=== PATIENT | female | born 1950 | race African-American/Black ===

== ENCOUNTER 2020-08-02 06:16 | Emergency (ER) | payer MEDICARE, MEDICAID ==
[2020-08-02 07:05] LABS: #Basophils 0.1 10x3/uL (0.0-0.2); #Monocytes 1.7 10x3/uL (0.0-1.1); #Neutrophils 17.1 10x3/uL (1.5-8.4); %Basophils 0.4 % (0.0-2.0); %Lymphocytes 7.3 % (18.0-47.0); %Monocytes 8.2 % (0.0-10.0); %Neutrophils 83.2 % (40.0-75.0); Hemoglobin 15.7 g/dL (12.0-15.5); Mean Corpuscular HGB CONC 35.6 g/dL (32.0-36.0); Mean Corpuscular Hemoglobin 32.9 pg (27.0-33.0); Mean Corpuscular Volume 92.5 fl (81.6-98.3); Platelet Count 9 10x3/uL (150-450); RBC Distribution Width 13.6 % (11.5-14.5); Red Blood Cell (RBC) Count 4.77 10x6/uL (3.90-5.03); White Blood Cell (WBC) Count 20.5 10x3/uL (3.5-10.5)
[2020-08-02 07:11] LABS: Acetaminophen Less than 6.0 mcg/mL (10.0-30.0); Alcohol Less than 10 mg/dL (Less than 10); Salicylate Less than 8.0 mg/dL (15.0-30.0)
[2020-08-02 07:17] LABS: Albumin 3.3 g/dL (3.4-4.8); Anion Gap 25 mmol/L (10-20); BUN (Urea Nitrogen) 56 mg/dL (9.8-20.1); Bilirubin, Total 2.1 mg/dL (0.2-1.2); Calc. Creatinine Clearance 0 mL/min (70-130); Calcium 7.6 mg/dL (7.8-10.44); Carbon Dioxide 14 mmol/L (23-31); Chloride 103 mmol/L (98-107); Globulin 2.7 g/dL (2.4-3.5); Glucose 196 mg/dL (80-115); Sodium 139 mmol/L (136-145)
[2020-08-02 07:18] LABS: ALT (SGPT) 31 U/L (8-55); AST (SGOT) 26 U/L (5-34); Alkaline Phosphatase 78 U/L (40-110)
[2020-08-02 07:21] LABS: Bilirubin 3+ (Negative); Blood, Urine 250 (Negative); Clarity Cloudy (Clear); Glucose, Urine (Dipstick) 100 mg/dL (Negative); Ketone, Urine 5 mg/dL (Negative); Leukocyte 25 (Negative); Nitrite Positive (Negative); Protein, Urine (Dipstick) 500 mg/dl (Neg-Trace)
[2020-08-02 07:31] LABS: Amphetamine Not Detected (NotDetected); Barbiturates Screen Not Detected (NotDetected); Benzodiazepine Screen Not Detected (NotDetected); Cocaine Metabolite Screen Not Detected (NotDetected); Methadone Not Detected (NotDetected); Methamphetamine Not Detected (NotDetected); Opiate Screen Detected (NotDetected); Oxycodone Screen Not Detected (NotDetected); Phencyclidine (PCP) Not Detected (NotDetected); THC/Cannabinoid Screen Detected (NotDetected); Tricyclic Screen Not Detected (NotDetected)
[2020-08-02 07:35] LABS: RBC/HPF Greater than 50 HPF (0-3); Squamous Epithelial 0-3 HPF (0-3); WBC/HPF 0-3 HPF (0-3)
[2020-08-02 07:37] LABS: Bacteria/HPF 3+ HPF (None Seen)
[2020-08-02 07:40] LABS: Potassium 2.7 mmol/L (3.5-5.1)
[2020-08-02 07:42] LABS: Platelet Morphology Comment Appears Decreased; RBC Morphology Normal
[2020-08-02 07:43] LABS: Reflex for Review?? YES
[2020-08-02] MEDS ORDERED: Vancomycin HCl 500 MG VIAL ONE (08:18)
[2020-08-02] MEDS ORDERED: Magnesium 2 GM/50 ML BAG (IN WATER) ONE (08:18)
[2020-08-02] MEDS ORDERED: Cefepime 2 GM VIAL ONE (09:04)
[2020-08-02] MEDS ORDERED: NS 0.9% w/ 40 MEQ KCL 1,000 ML IV ONE (09:04)
[2020-08-02] MEDS ORDERED: Ondansetron PF 4 MG/2 ML Vial ONE (09:22)
[2020-08-02] MEDS ORDERED: Amlodipine 5 MG TAB ONE (11:32)
[2020-08-02] MEDS ORDERED: Lisinopril 10 MG TAB ONE (11:32)
[2020-08-02] MEDS ORDERED: hydrALAZINE 25 MG TAB ONE (11:33)
[2020-08-02 14:03] LABS: Anion Gap 18 mmol/L (10-20); Globulin 2.9 g/dL (2.4-3.5)
[2020-08-02 14:11] LABS: ALT (SGPT) 30 U/L (8-55); AST (SGOT) 34 U/L (5-34); Albumin 3.5 g/dL (3.4-4.8); Alkaline Phosphatase 81 U/L (40-110); BUN (Urea Nitrogen) 53 mg/dL (9.8-20.1); Bilirubin, Total 2.6 mg/dL (0.2-1.2); Calc. Creatinine Clearance 0 mL/min (70-130); Calcium 7.6 mg/dL (7.8-10.44); Carbon Dioxide 17 mmol/L (23-31); Chloride 105 mmol/L (98-107); Glucose 150 mg/dL (80-115); Potassium 4.4 mmol/L (3.5-5.1); Protein, Total 6.4 g/dL (5.8-8.1); Sodium 136 mmol/L (136-145)
== END 2020-08-02 18:57 | disposition short-term general hospital (02) ==
LOC: CSHERS 06:16
DX: A41.9 Sepsis, unspecified organism (principal); R65.20 Severe sepsis without septic shock; N17.9 Acute kidney failure, unspecified; D69.6 Thrombocytopenia, unspecified; I10 Essential (primary) hypertension; E11.9 Type 2 diabetes mellitus without complications; F17.210 Nicotine dependence, cigarettes, uncomplicated
CPT/HCPCS: 36415; 70450; 71045; 74176; 80053; 80306; 80307; 81003; 81015; 85025; 85060; 86850; 86900; 86901; 87040; 93005; 94760; J0692; J2405; J3370; J3475; J3480